=== PATIENT | female | born 1940 | race African-American/Black ===

== ENCOUNTER 2019-05-03 13:38 | Outpatient (CLI) | payer MEDICARE, SELFPAY | END 2019-05-03 13:39 | disposition home or self-care (01) | LOC: ANHAUDIO 13:44 | PROVIDERS: PCP Family Medicine; Visit Provider Family Medicine | DX: H90.3 Sensorineural hearing loss, bilateral (principal) | CPT/HCPCS: 92557; 92567 ==

== ENCOUNTER 2019-05-17 14:49 | Outpatient (RCR) | payer MEDICARE, SELFPAY | END 2019-05-17 23:59 | disposition home or self-care (01) | LOC: ANHAUDIO 14:49 | PROVIDERS: PCP Family Medicine; Visit Provider Family Medicine | DX: Z46.1 Encounter for fitting and adjustment of hearing aid (principal) | CPT/HCPCS: V5261 ==